=== PATIENT | female | born 1965 | race Caucasian/White ===

== ENCOUNTER 2018-04-10 22:52 | Emergency (ER) | payer MEDICAID ==
[~2018-04-10] VITALS: Ht 172.7 cm; Wt 59.0 kg
[2018-04-10 22:57] VITALS: Ht 172.7 cm; Wt 59.0 kg
[2018-04-10 23:46] LABS: BASOPHIL % 1.2 % (0-2); PLATELET COUNT 197 x10^3mcL (130-400); RED CELL DISTRIBUTION WIDTH 13.1 % (11.5-14.5)
[2018-04-11 00:05] LABS: CALCIUM 8.2 mg/dL (8.5-10.1); CARBON DIOXIDE 28.9 mmol/L (21-32); CHLORIDE SERUM 82 mmol/L (98-107); CREATININE SERUM 0.5 mg/dL (0.6-1.0); GFR1 > 60 mL/min; GLUCOSE SERUM 88 mg/dL (74-106); POTASSIUM SERUM 3.7 mmol/L (3.5-5.1)
[2018-04-11 00:08] LABS: SODIUM SERUM 119 mmol/L (136-145)
[2018-04-11 06:47] VITALS: BP 108/69
== END 2018-04-11 06:47 | disposition left against medical advice (07) ==
LOC: ED 22:52
PROVIDERS: Emergency Medicine
DX: E87.1 Hypo-osmolality and hyponatremia (principal); F10.129 Alcohol abuse with intoxication, unspecified; Z88.5 Allergy status to narcotic agent
CPT/HCPCS: G0480; J7030

== ENCOUNTER 2019-08-22 09:29 | Emergency (ER) | payer BC ==
[~2019-08-22] VITALS: Ht 170.2 cm; Wt 60.3 kg
[2019-08-22 09:30] VITALS: Ht 170.2 cm; Wt 60.3 kg
[2019-08-22 10:23] LABS: BASOPHIL % 2.6 % (0-2); PLATELET COUNT 132 x10^3mcL (130-400); RED CELL DISTRIBUTION WIDTH 14.2 % (11.5-14.5)
[2019-08-22 13:10] LABS: CALCIUM 8.8 mg/dL (8.5-10.1); CARBON DIOXIDE 31.5 mmol/L (21-32); CHLORIDE SERUM 96 mmol/L (98-107); CREATININE SERUM 0.6 mg/dL (0.6-1.0); GFR1 > 60 mL/min; GLUCOSE SERUM 112 mg/dL (74-106); POTASSIUM SERUM 3.1 mmol/L (3.5-5.1); SODIUM SERUM 137 mmol/L (136-145)
[2019-08-22 14:18] VITALS: BP 126/79
== END 2019-08-22 14:18 | disposition home or self-care (01) ==
LOC: ED 09:29
PROVIDERS: Student in an Organized Health Care Education/Training Program
DX: J44.1 Chronic obstructive pulmonary disease with (acute) exacerbation (principal); E87.6 Hypokalemia; I10 Essential (primary) hypertension; Z88.5 Allergy status to narcotic agent; Z87.42 Personal history of other diseases of the female genital tract
CPT/HCPCS: 36415; 83880; 87804; J7512; J7613; J7644; Q0092

== ENCOUNTER 2019-12-23 11:57 | Inpatient (IN) | payer BC ==
[~2019-12-23] VITALS: Ht 172.7 cm; Wt 60.0 kg
[2019-12-23 12:16] VITALS: Ht 172.7 cm; Wt 60.0 kg
[2019-12-23] MEDS ORDERED: [UNRECOGNIZED DRUG - OTHER] PO (12:26)
[2019-12-23] MEDS ORDERED: PEPCID AC20 M2 PO (12:26)
[2019-12-23] MEDS ORDERED: [UNRECOGNIZED DRUG - CODE] PO (12:26)
[2019-12-23] MEDS ORDERED: BUSPIRONE HCL10 MG PO (12:27)
[2019-12-23] MEDS ORDERED: INDERAL LA60 MG PO (12:27)
[2019-12-23] MEDS ORDERED: MASON NATURAL1000 IU PO (12:28)
[2019-12-23] MEDS ORDERED: [UNRECOGNIZED DRUG - OTHER] PO (12:28)
[2019-12-23] MEDS ORDERED: [UNRECOGNIZED DRUG - OTHER] PO (12:28)
[2019-12-23] MEDS ORDERED: NATURE'S BLEND F1 MG PO (12:28)
[2019-12-23] MEDS ORDERED: GRALISE600 MG PO (12:29)
[2019-12-23] MEDS ORDERED: MAGOX 400241.3 MG PO (12:29)
[2019-12-23] MEDS ORDERED: QUETIAPINE FUMA50 M2 PO (12:29)
[2019-12-23] MEDS ORDERED: MELATONIN5 M3 PO (12:30)
[2019-12-23 13:07] LABS: PLATELET COUNT 254 x10^3mcL (130-400); RED CELL DISTRIBUTION WIDTH 13.6 % (11.5-14.5)
[2019-12-23 13:10] LABS: PATH REVIEW for HEMA NO
[2019-12-23 13:15] LABS: ALKALINE PHOSPHATASE 294 U/L (46-116); ALT/SGPT 43 U/L (14-59); AST/SGOT 135 U/L (15-37); CALCIUM 8.5 mg/dL (8.5-10.1); CARBON DIOXIDE 23.4 mmol/L (21-32); CHLORIDE SERUM 87 mmol/L (98-107); GLUCOSE SERUM 79 mg/dL (74-106); LIPASE 146 IU/L (73-393); POTASSIUM SERUM 3.8 mmol/L (3.5-5.1); SODIUM SERUM 125 mmol/L (136-145)
[2019-12-23 13:16] LABS: GFR1 12 mL/min
[2019-12-23 13:17] LABS: ALBUMIN 1.6 g/dL (3.4-5.0); TOTAL PROTEIN, SERUM 5.7 g/dL (6.4-8.2)
[2019-12-23 13:19] LABS: BILIRUBIN TOTAL 23.6 mg/dL (0.20-1.00); CREATININE SERUM 4.1 mg/dL (0.6-1.0)
[2019-12-23 15:48] LABS: T3 TOTAL 0.14 ng/mL
[2019-12-23 15:50] LABS: FREE T4 0.56 ng/dL (0.76-1.46)
[2019-12-23 15:51] LABS: FREE THYROXINE INDEX 0.6 ug/dL (1.4-4.5); T4(THYROXINE) 1.9 ug/dL (4.7-13.3)
[2019-12-23 16:06] LABS: PHOSPHOROUS 7.4 mg/dL (2.5-4.9)
[2019-12-23 16:07] LABS: CHOLESTEROL/HDL RATIO 4.5
[2019-12-23 16:54] LABS: UA SPECIFIC GRAVITY 1.025 (1.005-1.035); microscopic required? YES; urine erythrocyte 3+ (NEGATIVE)
[2019-12-23 17:12] LABS: AMPHETAMINE QUAL UR NONE DETECTED (See below)
[2019-12-23 20:18] VITALS: BP 75/42
[2019-12-23 23:19] VITALS: BP 106/53
[2019-12-24 03:04] VITALS: BP 108/61
[2019-12-24 03:51] LABS: microscopic required? YES; urine erythrocyte 3+ (NEGATIVE)
[2019-12-24 05:03] LABS: PLATELET COUNT 291 x10^3mcL (130-400)
[2019-12-24 05:13] LABS: CREATININE SERUM 3.8 mg/dL (0.6-1.0); MAGNESIUM 2.4 mg/dL (1.8-2.4); PHOSPHOROUS 5.8 mg/dL (2.5-4.9); POTASSIUM SERUM 3.1 mmol/L (3.5-5.1)
[2019-12-24 05:23] LABS: RED CELL DISTRIBUTION WIDTH 13.4 % (11.5-14.5)
[2019-12-24 06:16] LABS: MONOCYTE 2 % (0-7); SEGMENTED NEUTROPHILS 96 % (37-75)
[2019-12-24 06:17] LABS: BAND NEUTROPHIL 1 % (0-10); PLATELET MORPHOLOGY PLT CLUMPS SEEN; rbc morphology (normal/abnorm) ABNORMAL (NORMAL)
[2019-12-24 07:30] VITALS: BP 96/57
[2019-12-24 12:00] VITALS: BP 85/54
[2019-12-24 16:30] VITALS: BP 95/62
[2019-12-24 18:09] LABS: APPEARANCE FLUID HAZY; COLOR FLUID YELLOW; SOURCE FLUID ASCITES
[2019-12-24 18:10] LABS: WBC FLUID 4006 /cumm
[2019-12-24 18:11] LABS: LYMPHOCYTE FLUID 10 %; RBC FLUID 810 /cumm
[2019-12-24 20:31] VITALS: BP 91/52
[2019-12-25 00:40] VITALS: BP 91/41
[2019-12-25 04:09] VITALS: BP 90/62
[2019-12-25 05:47] LABS: PLATELET COUNT 160 x10^3mcL (130-400)
[2019-12-25 05:49] LABS: BASOPHIL % 0 % (0-2); RED CELL DISTRIBUTION WIDTH 14.6 % (11.5-14.5)
[2019-12-25 06:03] LABS: CALCIUM 7.6 mg/dL (8.5-10.1); CARBON DIOXIDE 17.1 mmol/L (21-32); CREATININE SERUM 3.6 mg/dL (0.6-1.0); MAGNESIUM 2.6 mg/dL (1.8-2.4); PHOSPHOROUS 5.1 mg/dL (2.5-4.9); POTASSIUM SERUM 3.3 mmol/L (3.5-5.1)
[2019-12-25 06:07] LABS: ALBUMIN 2.5 g/dL (3.4-5.0)
[2019-12-25 06:19] LABS: BILIRUBIN DIRECT 14.17 mg/dL (0.0-0.2); TOTAL PROTEIN, SERUM 5.1 g/dL (6.4-8.2)
[2019-12-25 06:21] LABS: BILIRUBIN TOTAL 19.79 mg/dL (0.20-1.00)
[2019-12-25 08:00] VITALS: BP 85/59
[2019-12-25 20:00] VITALS: BP 94/53
[2019-12-26] VITALS (7 sets, daily range): BP systolic 90–119; BP diastolic 54–76
[2019-12-26 07:26] LABS: PLATELET COUNT 144 x10^3mcL (130-400); RED CELL DISTRIBUTION WIDTH 14.4 % (11.5-14.5)
[2019-12-26 07:33] LABS: BASOPHIL % 2.9 % (0-2)
[2019-12-26 08:28] LABS: CALCIUM 8.1 mg/dL (8.5-10.1); CARBON DIOXIDE 16.2 mmol/L (21-32); CREATININE SERUM 3.4 mg/dL (0.6-1.0)
[2019-12-26 08:30] LABS: ALBUMIN 2.7 g/dL (3.4-5.0); POTASSIUM SERUM 2.9 mmol/L (3.5-5.1); TOTAL PROTEIN, SERUM 5.2 g/dL (6.4-8.2)
[2019-12-26 08:31] LABS: BILIRUBIN TOTAL 15.9 mg/dL (0.20-1.00)
[2019-12-26 12:26] LABS: rbc morphology (normal/abnorm) ABNORMAL (NORMAL)
[2019-12-27 05:24] VITALS: BP 112/70
[2019-12-27 06:43] LABS: CALCIUM 8.4 mg/dL (8.5-10.1); CARBON DIOXIDE 16.9 mmol/L (21-32); CREATININE SERUM 2.8 mg/dL (0.6-1.0); POTASSIUM SERUM 3.2 mmol/L (3.5-5.1)
[2019-12-27 06:50] LABS: ALBUMIN 2.5 g/dL (3.4-5.0); TOTAL PROTEIN, SERUM 4.9 g/dL (6.4-8.2)
[2019-12-27 06:51] LABS: BILIRUBIN TOTAL 14.44 mg/dL (0.20-1.00)
[2019-12-27 07:14] LABS: PLATELET COUNT 134 x10^3mcL (130-400); RED CELL DISTRIBUTION WIDTH 14.5 % (11.5-14.5)
[2019-12-27 07:18] VITALS: BP 84/56; BP 88/48
[2019-12-27 07:21] LABS: BASOPHIL % 0 % (0-2)
[2019-12-27 12:15] VITALS: BP 111/59
[2019-12-27 17:24] VITALS: BP 109/59
[2019-12-27 20:10] VITALS: BP 119/57
[2019-12-28 06:01] VITALS: BP 109/70
[2019-12-28 07:53] VITALS: BP 99/63
[2019-12-28 07:55] LABS: POTASSIUM SERUM 3.8 mmol/L (3.5-5.1)
[2019-12-28 07:56] LABS: ALBUMIN 2.5 g/dL (3.4-5.0); CARBON DIOXIDE 16.1 mmol/L (21-32); CREATININE SERUM 2.4 mg/dL (0.6-1.0); TOTAL PROTEIN, SERUM 5.1 g/dL (6.4-8.2)
[2019-12-28 07:59] LABS: BILIRUBIN TOTAL 15.32 mg/dL (0.20-1.00)
[2019-12-28 08:09] LABS: PLATELET COUNT 124 x10^3mcL (130-400); RED CELL DISTRIBUTION WIDTH 14.7 % (11.5-14.5)
[2019-12-28 09:53] LABS: BAND NEUTROPHIL 0 % (0-10); BASOPHIL 0 % (0-2); MONOCYTE 7 % (0-7); SEGMENTED NEUTROPHILS 92 % (37-75); rbc morphology (normal/abnorm) ABNORMAL (NORMAL)
[2019-12-28 09:54] LABS: PLATELET MORPHOLOGY PLATELETS DECREASED
[2019-12-28 12:06] VITALS: BP 129/72
[2019-12-28 14:22] VITALS: BP 108/64
[2019-12-28 15:41] VITALS: BP 114/58
[2019-12-28 20:37] VITALS: BP 108/65
[2019-12-29 05:36] VITALS: BP 107/66
[2019-12-29 08:01] LABS: CALCIUM 9.4 mg/dL (8.5-10.1); CARBON DIOXIDE 19.6 mmol/L (21-32); CREATININE SERUM 1.9 mg/dL (0.6-1.0); POTASSIUM SERUM 3.6 mmol/L (3.5-5.1)
[2019-12-29 08:02] LABS: ALBUMIN 2.4 g/dL (3.4-5.0)
[2019-12-29 08:05] LABS: BILIRUBIN TOTAL 13.94 mg/dL (0.20-1.00)
[2019-12-29 08:35] VITALS: BP 98/51
[2019-12-29 08:39] LABS: PLATELET COUNT 97 x10^3mcL (130-400); RED CELL DISTRIBUTION WIDTH 14.6 % (11.5-14.5)
[2019-12-29 12:33] VITALS: BP 102/67
[2019-12-29 13:11] LABS: BAND NEUTROPHIL 1 % (0-10); MONOCYTE 3 % (0-7); SEGMENTED NEUTROPHILS 90 % (37-75)
[2019-12-29 13:12] LABS: PLATELET MORPHOLOGY PLATELETS DECREASED; rbc morphology (normal/abnorm) ABNORMAL (NORMAL)
[2019-12-29 16:42] VITALS: BP 86/53
[2019-12-29 20:12] VITALS: BP 128/74
[2019-12-30 05:35] VITALS: BP 113/66
[2019-12-30 08:37] VITALS: BP 111/60
[2019-12-30 09:37] LABS: CALCIUM 9.1 mg/dL (8.5-10.1); CARBON DIOXIDE 21.2 mmol/L (21-32); CREATININE SERUM 1.6 mg/dL (0.6-1.0); MAGNESIUM 1.5 mg/dL (1.8-2.4); POTASSIUM SERUM 4.3 mmol/L (3.5-5.1)
[2019-12-30 09:54] LABS: PLATELET COUNT 70 x10^3mcL (130-400); RED CELL DISTRIBUTION WIDTH 15.3 % (11.5-14.5)
[2019-12-30 13:17] VITALS: BP 98/54
[2019-12-30 13:48] LABS: BAND NEUTROPHIL 1 % (0-10); MONOCYTE 5 % (0-7); SEGMENTED NEUTROPHILS 84 % (37-75); rbc morphology (normal/abnorm) ABNORMAL (NORMAL)
[2019-12-30 13:49] LABS: PLATELET MORPHOLOGY LARGE PLATELET SEEN
[2019-12-30 16:15] VITALS: BP 103/65
[2019-12-30 19:55] VITALS: BP 114/74
[2019-12-30 20:12] VITALS: BP 114/74
[2019-12-31 02:21] VITALS: BP 91/59
[2019-12-31 04:53] VITALS: BP 97/59
[2019-12-31 06:55] LABS: CALCIUM 8.7 mg/dL (8.5-10.1); CARBON DIOXIDE 19.8 mmol/L (21-32); CREATININE SERUM 1.3 mg/dL (0.6-1.0); POTASSIUM SERUM 4.5 mmol/L (3.5-5.1)
[2019-12-31 07:07] LABS: PLATELET COUNT 58 x10^3mcL (130-400); RED CELL DISTRIBUTION WIDTH 14.6 % (11.5-14.5)
[2019-12-31 08:48] VITALS: BP 99/54
[2019-12-31 09:50] LABS: BILIRUBIN DIRECT 8.94 mg/dL (0.0-0.2); BILIRUBIN TOTAL 11.95 mg/dL (0.20-1.00)
[2019-12-31 09:55] LABS: ALBUMIN 2.3 g/dL (3.4-5.0); TOTAL PROTEIN, SERUM 4.7 g/dL (6.4-8.2)
[2019-12-31 10:26] LABS: BAND NEUTROPHIL 2 % (0-10); BASOPHIL 0 % (0-2); MONOCYTE 5 % (0-7); SEGMENTED NEUTROPHILS 84 % (37-75)
[2019-12-31 10:27] LABS: PLATELET MORPHOLOGY PLATELETS DECREASED; rbc morphology (normal/abnorm) ABNORMAL (NORMAL)
[2019-12-31 10:33] LABS: burr cell (echinocyte) 1+
[2019-12-31 12:20] VITALS: BP 116/71
[2019-12-31 16:35] VITALS: BP 110/71
[2019-12-31 17:18] LABS: microscopic required? YES; urine erythrocyte TRACE (NEGATIVE)
[2019-12-31 21:09] VITALS: BP 100/54
[2020-01-01 05:39] VITALS: BP 93/51
[2020-01-01 06:34] LABS: BASOPHIL % 1.2 % (0-2)
[2020-01-01 07:14] LABS: CALCIUM 8.9 mg/dL (8.5-10.1); CARBON DIOXIDE 19.6 mmol/L (21-32); CREATININE SERUM 1.2 mg/dL (0.6-1.0); POTASSIUM SERUM 5.4 mmol/L (3.5-5.1)
[2020-01-01 08:25] LABS: PLATELET COUNT 69 x10^3mcL (130-400); RED CELL DISTRIBUTION WIDTH 14.9 % (11.5-14.5)
[2020-01-01 13:30] VITALS: BP 117/75
[2020-01-01 17:13] VITALS: BP 95/56
[2020-01-01 20:38] VITALS: BP 101/55
[2020-01-02 05:43] VITALS: BP 105/69
[2020-01-02 08:33] VITALS: BP 93/45
[2020-01-02] MEDS ORDERED: PEP20 PO (10:25)
[2020-01-02] MEDS ORDERED: LEV250 PO (10:25)
[2020-01-02] MEDS ORDERED: PROA PO (10:25)
[2020-01-02] MEDS ORDERED: FLA500 PO (10:26)
[2020-01-02 10:36] LABS: BILIRUBIN TOTAL 10.55 mg/dL (0.20-1.00); CALCIUM 8.6 mg/dL (8.5-10.1); CREATININE SERUM 1.2 mg/dL (0.6-1.0); POTASSIUM SERUM 5.4 mmol/L (3.5-5.1)
[2020-01-02 10:49] LABS: ALBUMIN 2.1 g/dL (3.4-5.0); TOTAL PROTEIN, SERUM 4.7 g/dL (6.4-8.2)
[2020-01-02 11:37] LABS: BAND NEUTROPHIL 0 % (0-10); BASOPHIL 0 % (0-2); MONOCYTE 6 % (0-7); SEGMENTED NEUTROPHILS 86 % (37-75); rbc morphology (normal/abnorm) ABNORMAL (NORMAL)
[2020-01-02 11:40] LABS: PLATELET MORPHOLOGY PLATELETS DECREASED
[2020-01-02 11:56] LABS: PLATELET COUNT 56 x10^3mcL (130-400); RED CELL DISTRIBUTION WIDTH 14.8 % (11.5-14.5)
[2020-01-02 13:00] VITALS: BP 94/52
[2020-01-02 13:27] VITALS: BP 94/52
== END 2020-01-02 15:03 | disposition hospice, home (50) | DRG 432 ==
LOC: ED 11:57 → DU 15:02 → IC 15:02 → DU 12-26 21:53
PROVIDERS: Emergency Medicine; Family Medicine; Internal Medicine; Internal Medicine Gastroenterology; ADMIT Student in an Organized Health Care Education/Training Program
PROC: 02HV33Z Insertion of Infusion Device into Superior Vena Cava, Percutaneous Approach (ICD-10-PCS; 2019-12-23)
PROC: B548ZZA Ultrasonography of Superior Vena Cava, Guidance (ICD-10-PCS; 2019-12-23)
PROC: 0W9G3ZZ Drainage of Peritoneal Cavity, Percutaneous Approach (ICD-10-PCS; principal; 2019-12-24)
PROC: 0W9G3ZZ Drainage of Peritoneal Cavity, Percutaneous Approach (ICD-10-PCS; 2019-12-28)
DX: K70.40 Alcoholic hepatic failure without coma (principal); G93.41 Metabolic encephalopathy; E43 Unspecified severe protein-calorie malnutrition; N17.0 Acute kidney failure with tubular necrosis; D68.9 Coagulation defect, unspecified; K76.6 Portal hypertension; E87.1 Hypo-osmolality and hyponatremia; Z88.6 Allergy status to analgesic agent; I10 Essential (primary) hypertension; F41.9 Anxiety disorder, unspecified; E78.5 Hyperlipidemia, unspecified; J44.9 Chronic obstructive pulmonary disease, unspecified; R62.7 Adult failure to thrive; Z68.20 Body mass index [BMI] 20.0-20.9, adult; K70.11 Alcoholic hepatitis with ascites; Z11.59 Encounter for screening for other viral diseases; E87.6 Hypokalemia; E83.42 Hypomagnesemia; E86.0 Dehydration
CPT/HCPCS: 49083; 84439; 87116; 87206; A4628; C1729; C9113; G0378; G0480; J0696; J1940; J2001; J2060; J2370; J2543; J2916; J3430; J3475; J3480; J3490; J7030; J7042; J7050; J7510; P9045; P9047; Q0092